=== PATIENT | male | born 1980 | race Caucasian/White ===

== ENCOUNTER → 2018-08-31 | Outpatient (CLI) | payer OTHER ==
[~2018-08-31] MED LIST: OMNIPAQUE 350 MG/ML, 100ML BOTTLE ONE
== END | disposition home or self-care (01) ==
LOC: RAD 13:57
PROVIDERS: ATTEND Internal Medicine Hematology & Oncology
DX: R91.1 Solitary pulmonary nodule (principal); R59.9 Enlarged lymph nodes, unspecified
CPT/HCPCS: 71260; 74177; Q9967

== ENCOUNTER → 2018-09-30 | Outpatient (CLI) | payer OTHER | END | disposition home or self-care (01) | LOC: PETCFH 12:56 | PROVIDERS: ATTEND Internal Medicine Hematology & Oncology | DX: C62.11 Malignant neoplasm of descended right testis (principal); K57.30 Diverticulosis of large intestine without perforation or abscess without bleeding; K66.8 Other specified disorders of peritoneum; Z98.890 Other specified postprocedural states | CPT/HCPCS: 78815; A9552 ==

== ENCOUNTER 2019-05-02 10:07 | Outpatient (CLI) | payer OTHER | END 2019-05-02 23:59 | disposition home or self-care (01) | LOC: RAD 10:07 | PROVIDERS: ATTEND Internal Medicine Hematology & Oncology | DX: C62.11 Malignant neoplasm of descended right testis (principal); R91.1 Solitary pulmonary nodule; R59.9 Enlarged lymph nodes, unspecified | CPT/HCPCS: 71260; 74177; 78306; A9503 ==

== ENCOUNTER → 2020-12-05 | Outpatient (CLI) | payer OTHER | END | disposition home or self-care (01) | LOC: RAD 09:31 | PROVIDERS: ATTEND Nurse Practitioner Family | DX: C62.11 Malignant neoplasm of descended right testis (principal); R56.9 Unspecified convulsions; R91.8 Other nonspecific abnormal finding of lung field; J98.4 Other disorders of lung; K76.0 Fatty (change of) liver, not elsewhere classified; Q89.09 Congenital malformations of spleen; J84.10 Pulmonary fibrosis, unspecified | CPT/HCPCS: 71045; 71260; 74177; Q9967 ==